=== PATIENT | male | born 1980 | race Caucasian/White ===

== ENCOUNTER 2018-12-26 10:15 | Emergency (ER) | payer OTHER ==
[~2018-12-26] VITALS: Wt 85.8 kg
[~2018-12-26 10:15] MED LIST: IBUP800T48 PO; PENI500T PO
[2018-12-26 10:17] VITALS: PULSE 56
[2018-12-26] MEDS ORDERED: ONDANSETRON 4 MG INJ IV STA (10:42)
[2018-12-26] MEDS ORDERED: morphine 4 MG/ML VIAL IV STA (10:42)
[2018-12-26] MEDS ORDERED: SOD CHLORIDE 0.9% 1,000 ML IV STA (10:42)
--- NOTE | 2018-12-26 11:38 | ERD ---
ER Documentation Chief Complaint Chief Complaint back pain rad testicle since 0500 HPI 38-year-old male with past medical history of right-sided kidney stones presenting to the emergency department complaining of right flank pain with radiation to his right testicle for the past 2 days. Symptoms are rated 6/10 in severity, intermittent, alleviated with ibuprofen. Last ibuprofen was taken approximately 4 hours prior to my examination. Patient is also had nausea. He denies any fevers, vomiting, or other symptoms at this time. ROS All systems reviewed and are negative except as per history of present illness. Medications Home Meds Active Scripts Hydrocodone/Acetaminophen ([place] 5-325 Tablet) 1 Each Tablet, 1 TAB PO Q6H PRN for PAIN, #7 TAB Prov:BECK CONROY PA-C 12/26/18 Naproxen* (Naprosyn*) 500 Mg Tablet, 500 MG PO BID PRN for PAIN AND/OR INFLAMMATION, #30 TAB Prov:BECK CONROY PA-C 12/26/18 Ibuprofen* (Motrin*) 800 Mg Tab, 800 MG PO Q6H PRN for PAIN AND OR ELEVATED TEMP, #30 TAB Prov:STEPHEN MARTÍNEZ PA-C 07/29/16 Penicillin V Potassium* (Penicillin V K*) 500 Mg Tab, 500 MG PO Q8 for 7 Days, TAB Prov:EDGAR HERNANDEZ 10/20/15 Allergies Allergies: Coded Allergies: No Known Allergy (Unverified , 12/26/18) PMhx/Soc Medical and Surgical Hx: pt denies Medical Hx, pt denies Surgical Hx History of Surgery: No Anesthesia Reaction: No Hx Neurological Disorder: No Hx Respiratory Disorders: No Hx Cardiac Disorders: No Hx Psychiatric Problems: No Hx Miscellaneous Medical Probl: No Hx Alcohol Use: No Hx Substance Use: No Hx Tobacco Use: No Smoking Status: Never smoker FmHx Family History: No diabetes Physical Exam Vitals Vital Signs Date Temp Pulse Resp B/P (MAP) Pulse Ox O2 O2 Flow FiO2 Time Delivery Rate 12/26/18 98.9 56 18 123/60 99 10:17 (81) Physical Exam Const: No acute distress Head: Atraumatic Eyes: Normal Conjunctiva ENT: Normal External Ears, Nose and Mouth. Neck: Full range of motion. No meningismus. Resp: Clear to auscultation bilaterally Cardio: Regular rate and rhythm, no murmurs Abd: Soft, non tender, non distended. Normal bowel sounds. No rebound tenderness or guarding. No McBurney's point tenderness. Exam: Scrotum: Normal Hernia: None Testes/Epid: Testicles have normal lie bilaterally. There is tenderness to palpation and mild swelling noted to the right testicle Cremaster: Reflex intact Lymph: No inguinal lymphadenopathy Discharge: None Skin: No petechiae or rashes Back: No midline tenderness. No step-offs. Tenderness palpation of the right flank area. Ext: No cyanosis, or edema Neur: Awake and alert Psych: Normal Mood and Affect Result Diagram: 12/26/18 1055 12/26/18 1055 Results 24 hrs Laboratory Tests Test 12/26/18 10:55 White Blood Count 11.6 10^3/ul Red Blood Count 4.91 10^6/ul Hemoglobin 14.1 g/dl Hematocrit 41.7 % Mean Corpuscular Volume 84.9 fl Mean Corpuscular Hemoglobin 28.7 pg Mean Corpuscular Hemoglobin Concent 33.8 g/dl Red Cell Distribution Width 12.2 % Platelet Count 222 10^3/UL Mean Platelet Volume 9.8 fl Immature Granulocytes % 0.400 % Neutrophils % 85.7 % Lymphocytes % 10.0 % Monocytes % 3.5 % Eosinophils % 0.2 % Basophils % 0.2 % Nucleated Red Blood Cells % 0.0 /100WBC Immature Granulocytes # 0.050 10^3/ul Neutrophils # 9.9 10^3/ul Lymphocytes # 1.2 10^3/ul Monocytes # 0.4 10^3/ul Eosinophils # 0.0 10^3/ul Basophils # 0.0 10^3/ul Nucleated Red Blood Cells # 0.0 10^3/ul Prothrombin Time 12.7 Sec Prothrombin Time Ratio 1.0 INR International Normalized Ratio 0.94 Activated Partial Thromboplast Time 26.7 Sec Urine Color YELLOW Urine Clarity CLEAR Urine pH 6.0 [address] [employer] 1.024 Urine Ketones TRACE mg/dL Urine Nitrite NEGATIVE mg/dL Urine Bilirubin NEGATIVE mg/dL Urine Urobilinogen NEGATIVE mg/dL Urine Leukocyte Esterase NEGATIVE Jorge/ul Urine Hemoglobin NEGATIVE mg/dL Urine Glucose NEGATIVE mg/dL Urine Total Protein NEGATIVE mg/dl Sodium Level 136 mmol/L Potassium Level 4.2 mmol/L Chloride Level 98 mmol/L Carbon Dioxide Level 28 mmol/L Anion Gap 10 Blood Urea Nitrogen 12 mg/dl Creatinine 0.73 mg/dl Est Glomerular Filtrat Rate mL/min > 60 mL/min Glucose Level 97 mg/dl Calcium Level 9.2 mg/dl Total Bilirubin 0.5 mg/dl Direct Bilirubin 0.00 mg/dl Indirect Bilirubin 0.5 mg/dl Aspartate Amino Transf (AST/SGOT) 26 IU/L Alanine Aminotransferase (ALT/SGPT) 26 IU/L Alkaline Phosphatase 62 IU/L Total Protein 7.0 g/dl Albumin 4.4 g/dl Globulin 2.60 g/dl Albumin/Globulin Ratio 1.69 Lipase 84 U/L Current Medications Medications Dose Sig/Acosta Start Time Status Last (Trade) Ordered Route PRN Stop Time Admin Dose Reason Admin Sodium 1,000 ml @ Q1H STAT 12/26/18 DC 12/26/18 Chloride 1,000 mls/hr IV 10:42 12/26/18 11:30 11:41 Morphine 4 mg ONCE STAT 12/26/18 DC 12/26/18 Sulfate IV 10:42 12/26/18 11:30 (morphine) 10:43 Ondansetron 4 mg ONCE STAT 12/26/18 DC 12/26/18 HCl (Zofran IV 10:42 12/26/18 11:30 Inj) 10:43 [place] [id number] Radiology Main Line: [phone] DIAGNOSTIC IMAGING REPORT Patient: JUDE RODARTE : 1980 Age: 38 Sex: M MR #: [id number] DOS: 12/26/18 1042 Ordering MD: BECK CONROY PA-C Location: E Room/Bed: PROCEDURE: CT Abdomen and pelvis without contrast. CLINICAL INDICATION: Right flank pain TECHNIQUE: CT scan of the abdomen and pelvis without contrast was performed on a multidetector high-resolution CT scan. . Coronal and sagittal reformatted images were obtained from the axial source images. Standard CT scan of the ab domen pelvis without contrast protocols were performed. The total exam CTDI equals 11.03 mGy and the total exam DLP equals 638.13 mGy- cm. One or more of the following dose reduction techniques were used: - Automated exposure control. - Adjustment of the mA and/or kV according to patient size. Use of iterative reconstruction technique. Dicom images are available COMPARISON: CT abdomen pelvis 07/30/2013 FINDINGS: The kidneys are normal in size with multiple bilateral nonobstructing renal calcified calculi more numerous on the left ranging between 2 and 4 mm. No intra renal masses bilaterally. No evidence of ureteral calcified calculi. Contracted otherwise unremarkable urinary bladder. Prostate unremarkable. Mild diverticular changes of the sigmoid colon. No CT evidence of diverticulitis. Remainder the colon is unremarkable. Stomach, small bowel and appendix unremarkable. No evidence of intra-abdominal free air, free fluid, abscesses or lymphadenopathy. Hepatomegaly with hepatic fatty infiltration. No focal hepatic lesions. Spleen pancreas adrenal glands and gallbladder unremarkable. No evidence biliary ductal dilation. Aorta unremarkable. Bilateral tiny fat containing inguinal hernias without herniated bowel or strangulation. Scarring of the abdominal wall. Lung bases unremarkable. Mild degenerate changes lower thoracic and lumbar spine without acute osseous findings or osteoblastic/osteolytic lesions. IMPRESSION: 1. Multiple bilateral nonobstructing small renal calcified calculi. No obstructive uropathy bilaterally. 2. Mild diverticulosis of the sigmoid colon without CT evidence diverticulitis. 3. Hepatomegaly with hepatic fatty infiltration. 4. Bilateral tiny fat containing inguinal hernias without herniated bowel or strangulation. RPTAT:AAJJ Physician Tony Date Time Electronically viewed and signed by Physician Tony on 12/26/2018 11:15 BM/ CC: BECK CONROY PA-C [id number] [place] [id number] Radiology Main Line: [phone] DIAGNOSTIC IMAGING REPORT Patient: JUDE RODARTE : 1980 Age: 38 Sex: M MR #: [id number] DOS: 12/26/18 1042 Ordering MD: BECK CONROY PA-C Location: [facility]TE Room/Bed: PROCEDURE: US Scrotum and Testicles. CLINICAL INDICATION: Scrotal pain. TECHNIQUE: Multiple sonographic images of the scrotal region were obtained utilizing a linear array transducer with grayscale, color-flow and Doppler imaging. The images were reviewed on a high-resolution PACS workstation. COMPARISON: No prior studies are available for comparison. FINDINGS: Right testicle: Size: 4.0 x 2.3 x 2.8 cm. Echogenicity: Normal. Vascularity: Normal. Lesions: None. Varicocele: None. Hydrocele: Small. Left testicle: Size: 4.1 x 2.7 x 2.3cm. Echogenicity: Normal. Vascularity: Normal. Lesions: None. Varicocele: None. Hydrocele: None. Epididymides: Right: 2.9 cm in length. Left: 1.6 cm in length. Echogenicity: Normal. Lesions: 2.7 cm simple cyst in the right epididymis. Multiple simple cysts in the left epididymis. The largest measuring up to 1.6 cm. IMPRESSION: Unremarkable testicles. Small right hydrocele. Simple cysts in the bilateral epididymides, measuring up to 2.7 cm on the right and 1.6 cm on the left. RPTAT: AA .Mateo Peraza MD, MD Date Time Electronically viewed and signed by .Mateo Peraza MD, MD on 12/26/2018 11:37 .P/ CC: BECK CONROY PA-C [id number] Procedures/MDM 38-year-old male presenting to the emergency department complaining of right sided flank pain and right testicular pain. Patient was administered morphine and Zofran and IV fluids in the department with good response. CBC: no e/o of systemic infection or severe anemia CMP: no e/o severe acidosis, alkalosis, renal failure, diabetic ketoacidosis, liver disease Lipase: no e/o pancreatitis PT/INR: normal coagulation Urine: no e/o acute infection or hematuria CT abdomen and pelvis without contrast: Evidence of bilateral nonobstructing kidney stones. The full report interpreted by the radiologist may be viewed above. Testicular ultrasound: No evidence of significant pathology. The full report from the radiologist may be viewed above. Medical decision making: Patient symptoms are likely secondary to nephrolithiasis. No evidence of acute surgical abdomen, sepsis, meningitis, obstructive uropathy, or other emergencies. Patient stable and appropriate for discharge and further treatment as an outpatient. The patient agreed with the diagnosis, plan, need for follow-up, return precautions. No evidence of life-threatening pathology at time of discharge. Pt/family in a greement with discharge plan/diagnosis. Pt/family advised to return immediately with any new or worsening symptoms. Follow-up with primary care physician within the next 1-2 days. Departure Diagnosis: Primary Impression: Renal colic on right side Condition: Fair Patient Instructions: Kidney Stone W/ Colic BECK CONROY PA-C Dec 26, 2018 11:38
[2018-12-26] MEDS ORDERED: HYDR-4011 PO (11:39)
[2018-12-26] MEDS ORDERED: NAPR-985 PO (11:39)
[2018-12-26] MEDS ORDERED: TAMS-14 PO (13:07)
[2018-12-26 13:16] VITALS: BP 122/57; RESP 18
== END 2018-12-26 13:17 | disposition home or self-care (01) ==
LOC: FTE 10:15
DX: N23 Unspecified renal colic (principal)
CPT/HCPCS: 36415; 74176; 76870; 80053; 81003; 83690; 85025; 85610; 85730; 96374; 96375; J2270; J2405; J7030; Z7502